=== PATIENT | female | born 1980 | race Caucasian/White ===

== ENCOUNTER 2023-07-02 10:27 | Emergency (ER) | payer OTHER, SELFPAY ==
[2023-07-02 10:31] VITALS: BP 126/91; PULSE 93; RESP 18; TEMP 36.5; O2SAT 99; BMI 28.1
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
--- OUTSIDE RECORDS SUMMARY | 2023-07-02 11:28 | XMS_ITS | Encounter Summary ---
Author Name Unknown Organization [place] Address [facility] [place] [address] Care Team Providers Care Retail Advertising Executive Name Role Phone Aric Dumont MD Primary Care Provider [phone] Anabell Wells Unavailable Unavailable Namrata Little PA-C Unavailable [phone] Aleshia Messina [facility] Unavailable Aleshia Messina [facility] Unavailable [phone] Aric Dumont MD Unavailable [phone] Encounter Details Date Type Department Care Team (Late st Contact Info) Description 08/17/2022 [facility] Medical Advice [facility] [address] [place] [phone] Cristina Guevara RN [facility] [address] [place] [address] [address] [place], [place] [id number] Social History Tobacco Use Types Packs/Day Years Used Date Smoking Tobacco: Every Day Cigarettes 0.3 19 Smokeless Tobacco: Never Alcohol Use Standard Drinks/Week Comments Yes 0 (1 standard drink = 0.6 oz pur e alcohol) 1x/month PHQ-2 Answer Date Recorded PHQ-2 Score 0 08/06/2020 Sex and Gender Information Value Date Recorded Sex Assigned at Not on file Gender Identity Female 11/27/2020 3:26 PM CDT Sexual Orientation Straight 11/27/2020 3: 26 PM CDT documented as of this encounter Plan of Treatment Not on file documented as of this encounter Visit Diagnoses Not on filedocumented in this encounter Additional Health Concerns Infection Onset Date Last Indicated Resolved Time ESBL 12/10/2010 08/12/2020 documented as of this encounter Care Teams Retail Advertising Executive Relationship Specialty [place] [address] [place] [address] PCP - General Family Practice 04/03/17 Anabell Wells Personal Advocate & Liaison (PAL) 08/07/20 Namrata Little PA-C [address] [facility] [address] [place] [address] Assigned Surgical Provider 09/15/20 Aleshia Messina [facility] [address] [place] [address] Pharmacist Pharmacist 03/17/21 Aleshia Messina [facility] [address] [place] [address] Assigned MTM Pharmacist 02/25/2209/18 [place] [address] [place] [address] Assigned PCP 07/25/22 documented as of this encounter
--- OUTSIDE RECORDS SUMMARY | 2023-07-02 11:28 | XMS_ITS | Encounter Summary ---
Author Name Unknown Organization [place] Address [address] [place] [address] Care Team Providers Care Propagation Worker Name Role Phone Aric Dumont MD Primary Care Provider [phone] Anabell Wells Unavailable Unavailable Namrata Little PA-C Unavailable [phone] Aleshia Messina [facility] Unavailable [phone] Aric Dumont MD Unavailable [phone] Encounter Details Date Type Department Care Team (Late st Contact Info) Description 11/12/2022 [facility] Medical Advice [address] [address] Cindy Lerma Social History Tobacco Use Types Packs/Day Years [...] documented as of this encounter Care Teams Propagation Worker Relationship Specialty [place] [address] [place] [address] PCP - General Family Practice 04/03/17 Anabell Wells Personal Advocate & Liaison (PAL) 08/07/20 Namrata Little PA-C [address] [facility] [address] [place] [address] Assigned Surgical Provider 09/15/20 Aleshia Messina [facility] [address] [place], [place] [address] Pharmacist Pharmacist 03/17/21 [place] [address] [place], [place] [id number] Assigned PCP 07/25/22 documented as of this encounter
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
--- OUTSIDE RECORDS SUMMARY | 2023-07-02 11:28 | XMS_ITS | Encounter Summary ---
Author Name Unknown Organization [place] Address [facility] [place] [address] Care Team Providers Care Lighting Engineering Technician Name Role Phone Aric Dumont MD Primary Care Provider [phone] Anabell Wells Unavailable Unavailable Namrata Little PA-C Unavailable [phone] Aleshia Messina [facility] Unavailable [phone] Aric Dumont MD Unavailable [phone] Encounter Details Date Type Department Care Team (Late st Contact Info) Description 10/12/2022 [facility] Medical Advice [facility] [address] [place] [address] Teetee Dubois RN Social History Tobacco Use Types Packs/Day Years [...] documented as of this encounter Care Teams Lighting Engineering Technician Relationship Specialty [place] [address] [place] [address] PCP - General Family Practice 04/03/17 Anabell Wells Personal Advocate & Liaison (PAL) 08/07/20 Namrata Little PA-C [address] [facility] [address] [place] [address] Assigned Surgical Provider 09/15/20 Aleshia Messina [facility] [address] [place] [address] Pharmacist Pharmacist 03/17/21 [place] [address] [place] [address] Assigned PCP 07/25/22 documented as of this encounter
--- OUTSIDE RECORDS SUMMARY | 2023-07-02 11:28 | XMS_ITS | Encounter Summary ---
Author Name Unknown Organization [place] Address [address] [place] [address] Care Team Providers Care Carburetor Repairer Name Role Phone Aric Dumont MD Primary Care Provider [phone] Anabell Wells Unavailable Unavailable Namrata Little PA-C Unavailable [phone] Aleshia Messina [facility] Unavailable [phone] Aric Dumont MD Unavailable [phone] Encounter Details Date Type Department Care Team (Latest Contact Info) Description 02/22/2023 Travel Social History Tobacco Use Types Packs/Day Years [...] Orientation Straight 11/27/2020 3: 26 PM CDT COVID-19 Exposure Response Date Recorded In the last 10 days, have yo u been in contact with someone who was confirmed or suspected to have Coronavirus/COVID-19? No / Unsure 02/22/2023 9:01 AM CDT documented as of this encounter Plan of Treatment Not on file documented as of this encounter Visit Diagnoses Not on filedocumented in this encounter Additional Health Concerns Infection Onset Date Last Indicated Resolved Time ESBL 12/10/2010 08/12/2020 documented as of this encounter Care Teams Carburetor Repairer Relationship Specialty [place] [address] [place] [address] PCP - General Family Practice 04/03/17 Anabell Wells Personal Advocate & Liaison (PAL) 08/07/20 Namrata Little PA-C [address] [facility] [address] [place] [address] Assigned Surgical Provider 09/15/20 Aleshia Messina, [facility] [address] [place] [address] Pharmacist Pharmacist 03/17/21 [place] [address] [place] [address] Assigned PCP 07/25/22 documented as of this encounter
--- OUTSIDE RECORDS SUMMARY | 2023-07-02 11:28 | XMS_ITS | Encounter Summary ---
Author Name Unknown Organization [place] Address [facility]0 [facility] [place] [address] Care Team Providers Care Contact Lens Inspector Name Role Phone Aric Dumont MD Primary Care Provider [phone] Anabell Wells Unavailable Unavailable Namrata Little PA-C Unavailable [phone] Aleshia Messina [facility] Unavailable [phone] Aric Dumont MD Unavailable [phone] Encounter Details Date Type Department Care Team (Latest Contact Info) Description 06/27/2023 Travel Social History Tobacco Use Types Packs/Day [...] documented as of this encounter Care Teams Contact Lens Inspector Relationship Specialty [place] [address] [place] [address] PCP - General Family Practice 04/03/17 Anabell Wells Personal Advocate & Liaison (PAL) 08/07/20 Namrata Little PA-C [address] [place] [address] Assigned Surgical Provider 09/15/20 Aleshia Messina [facility] [address] [place] [address] Pharmacist Pharmacist 03/17/21 [place] [address] [place] [address] Assigned PCP 07/25/22 documented as of this encounter
--- OUTSIDE RECORDS SUMMARY | 2023-07-02 11:28 | XMS_ITS | Encounter Summary ---
Author Name Unknown Organization [place] Address [facility] [place] [address] Care Team Providers Care Prospect Manager Name Role Phone Aric Dumont MD Primary Care Provider Anabell Wells Unavailable Unavailable Namrata Little PA-C Unavailable [phone] Aleshia Messina [facility] Unavailable Aric Dumont MD Unavailable [phone] Reason for Visit * Reason Comments UTI Entered automaticall y based on patient selection in [employer] [facility]. Encounter Details Date Type Department Care Team (Late st Contact Info) Description 02/22/2023 9:00 AM CDT E-Visit [facility] [address] [place] [phone] Orville Armas MD [address] [place] [address] UTI (Entered automatically based on patien... Social History Tobacco Use Types Packs/Day Years [...] AM CDT documented as of this encounter Patient Instructions * Patient Instructions* Orville Armas MD - 02/22/2023 9:00 AM CDT Dear Kim Harris After reviewing your responses, I've been able to diagnose you with a urinary tract infection, which is a common infection of the bladder with bacteria. This is not a sexually transmitted infection, though urinating immediately after intercourse can help prevent infections. Drinking lots of fluids is also helpful to clear your current infection and prevent the next one. I have sent a prescription for antibiotics to your pharmacy to treat this infection. It is important that you take all of your prescribed medication even if your symptoms are improvingafter a few doses. Taking all of your medicine helps prevent the symptoms from returning. If your symptoms worsen, you develop pain in your back or stomach, develop fevers, or are not improving in 5 days, please contact your primary care provider for an appointment or visit any of our convenient Walk-in or Urgent Care Centers to be seen, which can be found on our website here. Thanks again for choosing us as your health patient care technician, Orville Armas MD documented in this encounter Miscellaneous Notes * Telephone Encounter - Orville Armas MD - 02/22/2023 9:50 AM CDT Provider E-Visit time total (minutes): 3 documented in this encounter Plan of Treatment Not on file documented as of this encounter Visit Diagnoses Diagnosis Acute UTI (urinary tract infection)- Primary Urinary tract infection, site not specified documented in this encounter Additional Health Concerns Infection Onset Date Last Indicated Resolved Time ESBL 12/10/2010 08/12/2020 documented as of this encounter Care Teams Prospect Manager Relationship Specialty [place] [address] [place] [address] PCP - General Family Practice 04/03/17 Anabell Wells Personal Advocate & Liaison (PAL) 08/07/20 Namrata Little PA-C [address] [facility] [address] [place] [address] Assigned Surgical Provider 09/15/20 Aleshia Messina [facility] [address] [place] [address] Pharmacist Pharmacist 03/17/21 [place] [address] [place] [address] Assigned PCP 07/25/22 documented as of this encounter
--- OUTSIDE RECORDS SUMMARY | 2023-07-02 11:28 | XMS_ITS | Encounter Summary ---
Author Name Unknown Organization [place] Address [facility] [place] [address] Care Team Providers Care Land Appraiser Name Role Phone Aric Dumont MD Primary Care Provider [phone] Anabell Wells Unavailable Unavailable Namrata Little PA-C Unavailable [phone] Aleshia Messina [facility] Unavailable Aleshia Messina [facility] Unavailable [phone] Aric uDmont MD Unavailable [phone] Encounter Details Date Type Department Care Team (Late st Contact Info) Description 06/10/2022 [facility] [place] [facility] Weight Loss Clinic [address] [place] [phone] Cristina Guevara RN [facility] [address] [place] [address] [address] [place], [place] [id number] Social History Tobacco Use Types Packs/Day Years [...] documented as of this encounter Care Teams Land Appraiser Relationship Specialty [place] [address] [place] [address] PCP - General Family Practice 04/03/17 Anabell Wells Personal Advocate & Liaison (PAL) 08/07/20 Namrata Little PA-C [address] [facility] [address] [place] [address] Assigned Surgical Provider 09/15/20 Aleshia Messina [facility] 9 [place] [address] Pharmacist Pharmacist 03/17/21 Aleshia Messina [facility] [address] [place] [address] Assigned MTM Pharmacist 02/25/2209/18 [place] [address] [place] [address] Assigned PCP 07/25/22 documented as of this encounter
--- OUTSIDE RECORDS SUMMARY | 2023-07-02 11:28 | XMS_ITS | Encounter Summary ---
Author Name Unknown Organization [place] Address Formerly [facility], [facility] [place] [address] Care Team Providers Care Knock Up Assembler Name Role Phone Aric Dumont MD Primary Care Provider [phone] Anabell Wells Unavailable Unavailable Namrata Little PA-C Unavailable [phone] Aleshia Messina [facility] Unavailable [phone] Aleshia Messina [facility] Unavailable [phone] Aric Dumont MD Unavailable [phone] Reason for Visit * Reason Onset Date Comments Prior Auth - Medication 08/12/2022 liraglut kirk - Weight Management (SAXENDA) 18 MG/3ML pen--APPROVED Encounter Details Date Type Department Care Team (Late st Contact Info) Description 08/12/2022 Telephone [facility] [address] [place] [address] Namrata Little PA-C [address] [facility] [place] [address] Prior Auth - Medication (liraglutide - Weight Management (SAXENDA) 18 MG/3ML pen--APPROVED) Social History Tobacco Use Types Packs/Day Years [...] encounter Miscellaneous Notes * Telephone Encounter - Namrata Little PA-C - 08/17/2022 11:12 AM CDT Excellent. Please let pt know. * Telephone Encounter - Nate Diaz - 08/17/2022 10:05 AM CDT Prior authorization approved. $35/month co-pay. Thank you, ?? Nate Diaz [facility] [email or web address] * Telephone Encounter - Sarah Rodriguez - 08/17/2022 10:00 AM CDT Images from the original note were not included. Prior Authorization Approval Authorization Effective Date: 07/17/2022 Authorization Expiration Date: 08/17/2023 Medication: liraglutide - Weight Management (SAXENDA) 18 MG/3ML pen--APPROVED Approved Dose/Quantity: Reference #: Insurance Company: [employer] - Expected CoPay: CoPay Card Available: Foundation Assistance Needed: Which Pharmacy is filling the prescription (Not needed for infusion/clinic administered): [id number] - [place], [place] - [address] [facility] [address] AT [facility] 13 & AMA Pharmacy Notified: Yes Patient Notified: Yes Instructed pharmacy to notify patient when script is ready to pharmacy picking technician/ship. * Telephone Encounter - Sarah Rodriguez - 08/16/2022 9:45 AM CDT Images from the original note were not included. PA Initiation Medication: liraglutide - Weight Management (SAXENDA) 18 MG/3ML pen Insurance Company: [employer] - Pharmacy Filling the Rx: [id number] [place], [place] - [address] [place] [address] [address] AT [facility] 13 & AMA Filling Pharmacy Filling Pharmacy Start Date: 08/16/2022 * Telephone Encounter - Nate Diaz - 08/12/2022 2:25 PM CDT Images from the original note were not included. Received this communication. PA is needed. Please continue PA. ALE[facility] RX BIN: [id number] RX PCN: [id number] RX ID: [id number] RX GRP: [id number] Thank you, ?? Nate Diaz [facility] [email or web address] documented in this encounter Plan of Treatment Not on file documented as of this encounter Visit Diagnoses Not on filedocumented in this encounter Additional Health Concerns Infection Onset Date Last Indicated Resolved Time ESBL 12/10/2010 08/12/2020 documented as of this encounter Care Teams Knock Up Assembler Relationship Specialty [place] [address] [place] [address] PCP - General Family Practice 04/03/17 Anabell Wells Personal Advocate & Liaison (PAL) 08/07/20 Namrata Little PA-C [address] [place] [address] Assigned Surgical Provider 09/15/20 Aleshia Messina [facility] 909 [place], [place] [address] Pharmacist Pharmacist 03/17/21 Aleshia Messina [facility] 909 [place], [place] [address] Assigned MTM Pharmacist 02/25/2209/18 [place] [address] [place] [address] Assigned PCP 07/25/22 documented as of this encounter
--- OUTSIDE RECORDS SUMMARY | 2023-07-02 11:28 | XMS_ITS | Encounter Summary ---
Author Name Unknown Organization [place] Address [facility] [place] [address] Care Team Providers Care Pediatric Care Coordinator Name Role Phone Aric Dumont MD Primary Care Provider [phone] Anabell Wells Unavailable Unavailable Namrata Little PA-C Unavailable [phone] Aleshia Messina [facility] Unavailable [phone] Aric Dumont MD Unavailable [phone] Reason for Visit * Reason Onset Date Comments Refill Request 10/09/2022 Saxenda 6MG/ML P en Inj 3 ML Encounter Details Date Type Department Care Team (Late st Contact Info) Description 10/09/2022 Telephone [facility] Surgical Weight Loss [facility] [address] [place] [phone] Martin Barroso PA-C [address] [place] [address] Refill Request (Saxenda 6MG/ML Pen Inj 3 ML) Social History Tobacco Use Types Packs/Day Years [...] encounter Miscellaneous Notes * Telephone Encounter - Jensen Banks MA - 10/09/2022 2:55 PM CDT Medication & Dose: Saxenda 6MG/ML Pen Inj 3 ML Last Written Prescription Date: 11/03/2021 Last Fill Quantity: 15 mL # refills: 2 Last office visit with prescribing provider: 07/02/2022 Future Office Visit with [facility] Provider: N/A Pharmacy (specify location): [id number] AT [facility] 13 & AMA documented in this encounter Plan of Treatment Not on file documented as of this encounter Visit Diagnoses Not on filedocumented in this encounter Additional Health Concerns Infection Onset Date Last Indicated Resolved Time ESBL 12/10/2010 08/12/2020 documented as of this encounter Care Teams Pediatric Care Coordinator Relationship Specialty [place] [address] [place], [place] [id number] PCP - General Family Practice 04/03/17 Anabell Wells Personal Advocate & Liaison (PAL) 08/07/20 Namrata Little PA-C [address] [place] [address] Assigned Surgical Provider 09/15/20 Aleshia Messina [facility] 9 [place], [place] [address] Pharmacist Pharmacist 03/17/21 [place] [address] [place], [place] [id number] Assigned PCP 07/25/22 documented as of this encounter
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
--- OUTSIDE RECORDS SUMMARY | 2023-07-02 11:28 | XMS_ITS | Encounter Summary ---
Author Name Unknown Organization [place] Address [facility]0 [facility] [place] [address] Care Team Providers Care Line Closer Name Role Phone Aric Dumont MD Primary Care Provider [phone] Anabell Wells Unavailable Unavailable Namrata Little PA-C Unavailable [phone] Aleshia Messina [facility] Unavailable Aleshia Messina [facility] Unavailable [phone] Aric Dumont MD Unavailable [phone] Encounter Details Date Type Department Care Team (Late st Contact Info) Description 06/15/2022 [facility] Weight Loss [facility] [employer] [address] [facility] [address] [place] [phone] Namrata Little PA-C [address] [place], [place] [id number] [place] [address] Social History Tobacco Use Types Packs/Day Years [...] encounter Miscellaneous Notes * Telephone Encounter - Cristina Guevara, RN - 06/15/2022 4:11 PM STATE ASSESSED PROPERTIES DIRECTOR Called pt to inform Wegovy denied and recommended staying on Saxenda and possibly to start Naltrexone. msg sent in re: to above. Cristina Hurst, MS, RD, RN E ASSESSED PROPERTIES DIRECTOR documented in this encounter Plan of Treatment Not on file documented as of this encounter Visit Diagnoses Not on filedocumented in this encounter Additional Health Concerns Infection Onset Date Last Indicated Resolved Time ESBL 12/10/2010 08/12/2020 documented as of this encounter Care Teams Line Closer Relationship Specialty [place] [address] [place], [place] [id number] PCP - General Family Practice 04/03/17 Anabell Wells Personal Advocate & Liaison (PAL) 08/07/20 Namrata Little PA-C [address] [address] Assigned Surgical Provider 09/15/20 Aleshia Messina [facility] 9 [place] [address] Pharmacist Pharmacist 03/17/21 Aleshia Messina [facility] 909 [place] [address] Assigned MTM Pharmacist 02/25/2209/18 [place] [address] [place] [address] Assigned PCP 07/25/22 documented as of this encounter
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
--- OUTSIDE RECORDS SUMMARY | 2023-07-02 11:28 | XMS_ITS | Clinical Summary ---
Author Name Unknown Organization [place] Address [facility] [place] [address] Care Team Providers Care Putty And Patch Worker Name Role Phone Aric Dumont MD Primary Care Provider [phone] Anabell Wells Unavailable Unavailable Namrata Little PA-C Unavailable [phone] Aleshia Messina [facility] Unavailable Aric Dumont MD Unavailable [phone] Allergies Active Allergy Reactions Criticality Noted Date [...] Active fluticasone (FLONASE) 50 MCG/ACT sprayIndications:C oryza [place] 1-2 sprays into both nostrils daily 1 [...] 50 MCG/ACT nasal sprayIndications:A cute non-recurrent pansinusitis [place] 1 spray into both nostrils daily 18.2 [...] 03/03/2021 Migraine 03/16/2007 03/03/2021 Overview: Migraine NOS Encounters Date Type Department Care Team Description 06/28/2023 MyC Medical Advice [address] [phone] Aric Dumont MD Patient Request 06/27/2023 10:19 AM RESIDENTIAL GAS HEAT TECHNICIAN - 06/27/2023 11:06 AM RESIDENTIAL GAS HEAT TECHNICIAN Emergency [facility] Emergency Dept [address] [place] [address] Linwood Bañuelos MD Discharge Disposition: Left Without Being Seen 06/27/2023 Travel from Last 3 Months Immunizations Name Administration Dates Next Due Flu, Unspecified 03/06/2009,04/25/2002, 9 HPV Quadrivalent 06/14/2007 HepB, Unspecified 09/02/2001,02/14/2001,01/19/20 01 MMR 08/21/2014,01/18/2001,07/08/1994 Mantoux Tuberculin Skin Test 08/29/2014,08/22/19 15,11/03/2006 Pneumococcal 23 valent 09/26/2009 TDAP Vaccine (Adacel) 07/14/2012 Td (Adult), Adsorbed 01/18/2001 Varicella Pt Report Hx of Va ricella/Chicken Pox 08/21/2014 Family History Medical History Relation Comments Skin Cancer No family hx of Relation Status Comments Father Alive Mother Alive Social History Tobacco Use Types Packs/Day Years [...] Comments Blood Pressure 140/94 06/27/2023 10:24 AM RESIDENTIAL GAS HEAT TECHNICIAN Pulse 104 06/27/2023 10:24 AM RESIDENTIAL GAS HEAT TECHNICIAN Temperature 36.7 ??C (98.1 ??F) 06/27/2023 10:[address] Respiratory Rate 18 06/27/2023 10:24 AM RESIDENTIAL GAS HEAT TECHNICIAN Oxygen Saturation 100% 06/27/2023 10:24 AM RESIDENTIAL GAS HEAT TECHNICIAN Inhaled Oxygen Concentration - - Weight 88.5 kg (195 lb) 06/09/2022 2:30 PM RESIDENTIAL GAS HEAT TECHNICIAN p t reported Height 175.3 cm (5' 9) 06/09/2022 2:30 PM RESIDENTIAL GAS HEAT TECHNICIAN p t reported Body Mass Index 28.8 06/09/2022 2:30 PM RESIDENTIAL GAS HEAT TECHNICIAN Plan of Treatment Health Maintenance Due Date Last Done Comments ADVANCE CARE PLANNING 1981 DEPRESSION ACTION PLAN 1981 MAMMO SCREENING 1981 PHQ-9 1981 COVID-19 Vaccine (#1) 05/25/1982 HPV IMMUNIZATION (2 - 3-dose series) 07/12/2007 06/14/2007 YEARLY PREVENTIVE VISIT 10/19/2018 10/19/2017 A1C 08/06/2021 08/06/2020 ANNUAL REVIEW OF HM ORDERS 08/06/2021 08/06/2020, DTAP/TDAP/TD IMMUNIZATION (3 - Td or Tdap) 07/14/2022 07/14/2012, 01/18/2001 LIPID 10/19/2022 10/19/2017, 12/10/2015 INFLUENZA VACCINE (#1) 2023 9, 04/25/2002, 03/27/1999 GLUCOSE 12/21/2024 12/21/2021, 03/01/2021, 07/28/2018, Additional history exists HEPATITIS B IMMUNIZATION Completed 002, 02/14/2001, 01/18/2001 Pneumococcal Vaccine: Pediatrics (0 to 5 Years) and At-Risk Patients (6 to 64 Years) Discontinued 09/26/2009 HIV SCREENING Completed 10/19/2017 HEPATITIS C SCREENING Completed 08/06/2020 IPV IMMUNIZATION Aged Out No longer e ligible based on patient's age to complete this topic MENINGITIS IMMUNIZATION Aged Out No l onger eligible based on patient's age to complete this topic PAP Discontinued RSV MONOCLONAL ANTIBODY Aged Out No l onger eligible based on patient's age to complete this topic Medical Devices Explanted Type Area Breaker Tender Device Identifier Shelf Expiration Date Model / Serial / Lot Catheter-2020 Implanted:Qty: 1 on 11/25/2020 by Cedrick Lee MD Explanted:Qty: 1 on 11/25/2020 by Cedrick Lee MD Catheter Bilateral : Leg [employer] [id number] 05/30/2022 / / [id number] Additional Health Concerns Infection Onset Date Last Indicated ESBL 12/10/2010 08/12/2020 Care Teams Putty And Patch Worker Relationship Specialty [place] [address] [place], [place] [id number] PCP - General Family Practice 04/03/17 Anabell Wells Personal Advocate & Liaison (PAL) 08/07/20 Namrata Little PA-C [address] [facility] [address] [place] [address] Assigned Surgical Provider 09/15/20 Aleshia Messina [facility] 909 [place] [address] Pharmacist Pharmacist 03/17/21 [place] [address] [place], [place] [address] Assigned PCP 07/25/22
--- OUTSIDE RECORDS SUMMARY | 2023-07-02 11:28 | XMS_ITS | Encounter Summary ---
Author Name Unknown Organization [place] Address [address] [facility] [address] Care Team Providers Care Nitroglycerin Separator Operator Name Role Phone Aric Dumont MD Primary Care Provider [phone] Anabell Wells Unavailable Unavailable Namrata Little PA-C Unavailable [phone] Aleshia Messina [facility] Unavailable Aric Dumont MD Unavailable [phone] Reason for Visit * Reason Comments Cough Entered automaticall y based on patient selection in MyChart. Encounter Details Date Type Department Care Team (Late st Contact Info) Description 03/16/2023 10:35 AM CDT E-Visit [facility] [address] [address] Gurmeet Wilson MD 0485 [facility] [address] [place], [place] [address] Cough (Entered automatically based on rea... Social History Tobacco Use Types Packs/Day Years [...] AM CDT documented as of this encounter Miscellaneous Notes * Telephone Encounter - Gurmeet Wilson MD - 03/16/2023 10:37 AM CDT Provider E-Visit time total (minutes): 2 documented in this encounter Plan of Treatment Scheduled Orders Name Type Priority Associated Diagnoses Orde r Schedule Influenza A & B Antigen (Clinic collect) Microbiology Routine Suspected COVID-19 virus infection Expected: 03/16/2023 (Approximate), Expires: 04/16/2023 Symptomatic COVID-19 Virus (Coronavirus) by PCR Nose Lab Routine Suspected COVID-19 virus infection Expected: 03/16/2023 (Approximate), Expires: 04/16/2023 Streptococcus A Rapid Screen w/Reflex to PCR Microbiology Routine Suspected COVID-19 virus infection Expected: 03/16/2023 (Approximate), Expires: 04/16/2023 documented as of this encounter Visit Diagnoses Diagnosis Suspected COVID-19 virus infection- Primary documented in this encounter Additional Health Concerns Infection Onset Date Last Indicated Resolved Time ESBL 12/10/2010 08/12/2020 documented as of this encounter Care Teams Nitroglycerin Separator Operator Relationship Specialty [place] [address] [place] [address] [place] [address] PCP - General Family Practice 04/03/17 Anabell Wells Personal Advocate & Liaison (PAL) 08/07/20 Namrata Little PA-C [address] [facility] [address] [place] [address] Assigned Surgical Provider 09/15/20 Aleshia Messina, [facility] 909 [place] [address] Pharmacist Pharmacist 03/17/21 [place] [address] [place] [address] Assigned PCP 07/25/22 documented as of this encounter
--- OUTSIDE RECORDS SUMMARY | 2023-07-02 11:29 | XMS_ITS | Encounter Summary ---
Author Name Unknown Organization [place] Address [facility] [place] [address] Care Team Providers Care Computer Networking Instructor Name Role Phone Aric Dumont MD Primary Care Provider Aric Dumont MD Unavailable [phone] Anabell Wells Unavailable Unavailable Cedrick Lee MD Unavailable [phone] Namrata Little PA-C Unavailable [phone] Aleshia Messina [facility] Unavailable [phone] Aleshia Messina [facility] Unavailable Aleshia Messina [facility] Unavailable Airc Dumont MD Unavailable [phone] Encounter Details Date Type Department Care Team (Late st Contact Info) Description 02/10/2021 [facility] Medical Advice [facility] [place] [id number] [facility] [address] [place] [phone] Namrata Little PA-C [address] [facility] [place], [place] [address] Social History Tobacco Use Types Packs/Day Years [...] Last Indicated Resolved Time ESBL 12/10/2010 08/12/2020 Rule Out COVID-19 05/04/2021 05/04/2021 05/05/2021 11:08 AM MACHINE TANK OPERATOR Rule Out COVID-19 12/21/2021 12/21/2021 12/21/2021 11:03 AM CDT COVID-19 12/21/2021 12/21/2021 01/11/2022 11:4 1 PM CDT documented as of this encounter Care Teams Computer Networking Instructor Relationship Specialty [place] [address] [place] [address] PCP - General Family Practice 04/03/17 [place] [address] [place] [address] Assigned PCP 11/19/19 05/15/22 Anabell Wells Personal Advocate & Liaison (PAL) 08/07/20 Cedrick Lee MD [address] [place] [address] Assigned Heart and Vascular Provider 08/18/20 05/29/22 Namrata Little PA-C [address] [place] [address] Assigned Surgical Provider 09/15/20 Aleshia Messina, [facility] 909 [place] [address] Pharmacist Pharmacist 03/17/21 Aleshia Messina, [facility] 9 [place] [address] Assigned MTM Pharmacist 10/25/2102/13 Aleshia Messina [facility] 9 [place] [address] Assigned MTM Pharmacist 02/25/2209/18 [place] [address] [place] [address] Assigned PCP 07/25/22 documented as of this encounter
--- OUTSIDE RECORDS SUMMARY | 2023-07-02 11:29 | XMS_ITS | Encounter Summary ---
Author Name Unknown Organization [place] Address [facility] [place] [address] Care Team Providers Care Sales Representative Groceries Name Role Phone Aric Dumont MD Primary Care Provider Aric Dumont MD Unavailable [phone] Anabell Wells Unavailable Unavailable Cedrick Lee MD Unavailable [phone] Namrata Little PA-C Unavailable [phone] Aleshia Messina [facility] Unavailable [phone] Aleshia Messina [facility] Unavailable Aleshia Messina [facility] Unavailable Aric Dumont MD Unavailable [phone] Encounter Details Date Type Department Care Team (Late st Contact Info) Description 07/22/2021 [facility] [address] [place] [address] Cristina Guevara RN [facility] [address] [place] [address] [address] [place] [address] Social History Tobacco Use Types Packs/Day Years [...] Time ESBL 12/10/2010 08/12/2020 Rule Out COVID-19 12/21/2021 12/21/2021 12/21/2021 11:03 AM CDT COVID-19 12/21/2021 12/21/2021 01/11/2022 11:4 1 PM CDT documented as of this encounter Care Teams Sales Representative Groceries Relationship Specialty [place] [address] [place] [address] PCP - General Family Practice 04/03/17 [place] [address] [place] [address] Assigned PCP 11/19/19 05/15/22 Anabell Wells Personal Advocate & Liaison (PAL) 08/07/20 Cedrick Lee MD [address] [place] [address] Assigned Heart and Vascular Provider 08/18/20 05/29/22 Namrata Little PA-C [address] [place] [address] Assigned Surgical Provider 09/15/20 Aleshia Messina, [facility] [address] [place], [place] [address] Pharmacist Pharmacist 03/17/21 Aleshia Messina [facility] [address] [place] [address] Assigned MTM Pharmacist 10/25/2102/13 Aleshia Messina [facility] [address] [place] [address] Assigned MTM Pharmacist 02/25/2209/18 [place] [address] [place] [address] Assigned PCP 07/25/22 documented as of this encounter
--- OUTSIDE RECORDS SUMMARY | 2023-07-02 11:29 | XMS_ITS | Encounter Summary ---
Author Name Unknown Organization [place] Address [facility] [place] [address] Care Team Providers Care Spudder Name Role Phone Aric Dumont MD Primary Care Provider [phone] Aric Dumont MD Unavailable [phone] Anabell Wells Unavailable Unavailable Cedrick Lee MD Unavailable [phone] Namrata Little PA-C Unavailable [phone] Aleshia Messina [facility] Unavailable [phone] Aleshia Messina [facility] Unavailable Aleshia Messina [facility] Unavailable [phone] Aric Dumont MD Unavailable [phone] Reason for Visit * Reason Comments Medication Refill Encounter Details Date Type Department Care Team (Late st Contact Info) Description 07/22/2021 [facility] Surgical Weight [facility] [place] [address] [facility] [address] [place] [phone] Namrata Little PA-C [address] [facility] [address] [place] [id number] Medication Refill Social History Tobacco Use Types Packs/Day Years [...] encounter Miscellaneous Notes * Telephone Encounter - Martin Barroso PA-C - 07/22/2021 3:34 PM SACK MAKER Needs appointment MAKER documented in this encounter Plan of Treatment Not on file documented as of this encounter Visit Diagnoses Diagnosis Class 1 obesity due to excess calories without serious comorbidity with body mass index (BMI) of 33.0 to 33.9 in adult Prediabetes Other abnormal glucose documented in this encounter Additional Health Concerns Infection Onset Date Last Indicated Resolved Time ESBL 12/10/2010 08/12/2020 Rule Out COVID-19 12/21/2021 12/21/2021 12/21/2021 11:03 AM CDT COVID-19 12/21/2021 12/21/2021 01/11/2022 11:4 1 PM CDT documented as of this encounter Care Teams Spudder Relationship Specialty [place] [address] [place] [address] PCP - General Family Practice 04/03/17 [place] [address] [place] [address] Assigned PCP 11/19/19 05/15/22 Anabell Wells Personal Advocate & Liaison (PAL) 08/07/20 Cedrick Lee MD [address] [place] [address] Assigned Heart and Vascular Provider 08/18/20 05/29/22 Namrata Little PA-C [address] [place] [address] Assigned Surgical Provider 09/15/20 Aleshia Messina [facility] 9 [place] [address] Pharmacist Pharmacist 03/17/21 [facility] 9 [place] [address] Assigned MTM Pharmacist 10/25/2102/13 [facility] 9 [place] [address] Assigned MTM Pharmacist 02/25/2209/18 [place] [address] [place] [address] Assigned PCP 07/25/22 documented as of this encounter
--- OUTSIDE RECORDS SUMMARY | 2023-07-02 11:29 | XMS_ITS | Encounter Summary ---
Author Name Unknown Organization [place] Address [address] [place] [address] Care Team Providers Care Molasses Coloring Operator Name Role Phone Aric Dumont MD Primary Care Provider [phone] Aric Dumont MD Unavailable [phone] Aanbell Wells Unavailable Unavailable Cedrick Lee MD Unavailable [phone] Namrata Little PA-C Unavailable [phone] Aleshia Messina [facility] Unavailable Aleshia Messina [facility] Unavailable Aleshia Messina [facility] Unavailable [phone] Aric Dumont MD Unavailable [phone] Encounter Details Date Type Department Care Team (Late st Contact Info) Description 03/18/2021 [facility] [address] [place] [address] Aleshia Messina, [facility] [address] [place] [address] Social History Tobacco Use Types Packs/Day Years [...] Out COVID-19 05/04/2021 05/04/2021 05/05/2021 11:08 AM SOLID GLASS ROD DOWEL MACHINE OPERATOR Rule Out COVID-19 12/21/2021 12/21/2021 12/21/2021 11:03 AM CDT COVID-19 12/21/2021 12/21/2021 01/11/2022 11:4 1 PM CDT documented as of this encounter Care Teams Molasses Coloring Operator Relationship Specialty [place] [address] [place] [address] PCP - General Family Practice 04/03/17 [place] [address] [place] [address] Assigned PCP 11/19/19 05/15/22 Anabell Wells Personal Advocate & Liaison (PAL) 08/07/20 Cedrick Lee MD [address] [place] [address] Assigned Heart and Vascular Provider 08/18/20 05/29/22 Namrata Little PA-C [address] [place] [address] Assigned Surgical Provider 09/15/20 Aleshia Messina [facility] 9 [place] [address] Pharmacist Pharmacist 03/17/21 Aleshia Messina, [facility] [address] [place] [address] Assigned MTM Pharmacist 10/25/2102/13 Aleshia Messina [facility] [address] [place] [address] Assigned MTM Pharmacist 02/25/2209/18 [place] [address] [place] [address] Assigned PCP 07/25/22 documented as of this encounter
--- OUTSIDE RECORDS SUMMARY | 2023-07-02 11:29 | XMS_ITS | Encounter Summary ---
Author Name Unknown Organization [place] Address [facility] [place] [address] Care Team Providers Care Gas Turbine Mechanic Name Role Phone Aric Dumont MD Primary Care Provider [phone] Aric Dumont MD Unavailable [phone] Anabell Wells Unavailable Unavailable Cedrick Lee MD Unavailable [phone] Namrata Little PA-C Unavailable [phone] Aleshia Messina [facility] Unavailable [phone] Aleshia Messina [facility] Unavailable [phone] Aleshia Messina [facility] Unavailable [phone] Aric Dumont MD Unavailable [phone] Reason for Visit * Reason Comments Medication Refill Encounter Details Date Type Department Care Team (Late st Contact Info) Description [facility] [place] [address] [facility] [address] [place] [phone] Namrata Little PA-C 6[address] [facility] [address] [place] [address] Medication Refill Social History Tobacco Use Types [...] suspected to have Coronavirus/COVID-19? No / Unsure 12/21/2021 9:40 AM CDT documented as of this encounter Miscellaneous Notes * Telephone Encounter - Cristina Guevara, ROSEMARY - 01/19/2022 8:43 AM CDT Medication discontinued and changed to Saxenda 03/17/21. Cristina Hurst MS, RD, RN documented in this encounter Plan of Treatment Not on file documented as of this encounter Visit Diagnoses Diagnosis Prediabetes Other abnormal glucose Class 2 severe obesity due to excess calories with serious comorbidity and body mass index (BMI) of 39.0 to 39.9 in adult (H) documented in this encounter Additional Health Concerns Infection Onset Date Last Indicated Resolved Time ESBL 12/10/2010 08/12/2020 documented as of this encounter Care Teams Gas Turbine Mechanic Relationship Specialty [place] [address] [place] [address] PCP - General Family Practice 04/03/17 [place] [address] [place] [address] Assigned PCP 11/19/19 05/15/22 Anabell Wells Personal Advocate & Liaison (PAL) 08/07/20 Cedrick Lee MD [address] [address] Assigned Heart and Vascular Provider 08/18/20 05/29/22 Namrata Little PA-C [address] [place] [address] Assigned Surgical Provider 09/15/20 Aleshia Messina [facility] 9 [place] [address] Pharmacist Pharmacist 03/17/21 Aleshia Messina [facility] [address] [place] [address] Assigned MTM Pharmacist 10/25/2102/13 Aleshia Messina [facility] [address] [place] [address] Assigned MTM Pharmacist 02/25/2209/18 [place] [address] [place] [address] Assigned PCP 07/25/22 documented as of this encounter
--- OUTSIDE RECORDS SUMMARY | 2023-07-02 11:29 | XMS_ITS | Encounter Summary ---
Author Name Unknown Organization [place] Address [facility] [place] [address] Care Team Providers Care Pilot Plant Operator Helper Name Role Phone Aric Dumont MD Primary Care Provider Aric Dumont MD Unavailable [phone] Anabell Wells Unavailable Unavailable Cedrick Lee MD Unavailable [phone] Namrata Little PA-C Unavailable [phone] Aleshia Messina [facility] Unavailable Aleshia Messina [facility] Unavailable Aleshia Messina [facility] Unavailable Aric Dumont MD Unavailable [phone] Reason for Visit * Reason Comments Medication Refill Encounter Details Date Type Department Care Team (Late st Contact Info) Description [facility] [place] [address] [facility] [address] [place] [phone] Namrata Little PA-C 6[address] [facility] [address] [place] [address] Medication Refill Social History Tobacco Use Types [...] suspected to have Coronavirus/COVID-19? No / Unsure 09/22/2021 3:32 PM CDT documented as of this encounter Miscellaneous Notes * Telephone Encounter - Cristina Guevara, RN - 09/22/2021 3:13 PM CDT Duplicate. Same refill request sent earlier today and waiting on patient's reply. Cristina Hurst, MS, RD, RN documented in this encounter Plan of Treatment Not on file documented as of this encounter Visit Diagnoses Diagnosis Class 2 severe obesity due to excess [...] documented as of this encounter Care Teams Pilot Plant Operator Helper Relationship Specialty [place] [address] [place] [address] PCP - General Family Practice 04/03/17 [place] [address] [place] [address] Assigned PCP 11/19/19 05/15/22 Anabell Wells Personal Advocate & Liaison (PAL) 08/07/20 Cedrick Lee MD [address] [place] [address] Assigned Heart and Vascular Provider 08/18/20 05/29/22 Namrata Little PA-C [address] [place] [address] Assigned Surgical Provider 09/15/20 Aleshia Messina [facility] 9 [place] [address] Pharmacist Pharmacist 03/17/21 [facility] [address] [place] [address] Assigned MTM Pharmacist 10/25/2102/13 [facility] 9 [place] [address] Assigned MTM Pharmacist 02/25/2209/18 [place] [address] [place] [address] Assigned PCP 07/25/22 documented as of this encounter
--- OUTSIDE RECORDS SUMMARY | 2023-07-02 11:29 | XMS_ITS | Encounter Summary ---
Author Name Unknown Organization [place] Address [address] [place] [address] Care Team Providers Care Engineer Design And Construction Name Role Phone Aric Dumont MD Primary Care Provider Aric Dumont MD Unavailable [phone] Anabell Wells Unavailable Unavailable Cedrick Lee MD Unavailable [phone] Namrata Little PA-C Unavailable [phone] Aleshia Messina [facility] Unavailable [phone] Aleshia Messina [facility] Unavailable Aleshia Messina [facility] Unavailable [phone] Aric Dumont MD Unavailable [phone] Encounter Details Date Type Department Care Team (Late st Contact Info) Description 03/27/2021 [facility] [address] [place] [address] Aleshia Messina, [facility] [address] [place] [address] Social History Tobacco Use Types [...] Out COVID-19 05/04/2021 05/04/2021 05/05/2021 11:08 AM CATTLE PRODUCERS Rule Out COVID-19 12/21/2021 12/21/2021 12/21/2021 11:03 AM CDT COVID-19 12/21/2021 12/21/2021 01/11/2022 11:4 1 PM CDT documented as of this encounter Care Teams Engineer Design And Construction Relationship Specialty [place] [address] [place] [address] PCP - General Family Practice 04/03/17 [place] [address] [place] [address] Assigned PCP 11/19/19 05/15/22 Anabell Wells Personal Advocate & Liaison (PAL) 08/07/20 Cedrick Lee MD [address] [place] [address] Assigned Heart and Vascular Provider 08/18/20 05/29/22 Namrata Little PA-C [address] [place] 264475 Assigned Surgical Provider 09/15/20 Aleshia Messina [facility] [address] [place] [address] Pharmacist Pharmacist 03/17/21 Aleshia Messina, [facility] [address] [place] [address] Assigned MTM Pharmacist 10/25/2102/13 Aleshia Messina [facility] [address] [place] [address] Assigned MTM Pharmacist 02/25/2209/18 [place] [address] [place] [address] Assigned PCP 07/25/22 documented as of this encounter
--- OUTSIDE RECORDS SUMMARY | 2023-07-02 11:29 | XMS_ITS | Encounter Summary ---
Author Name Unknown Organization [place] Address [address] [place] [address] Care Team Providers Care Mailroom Messenger Name Role Phone Aric Dumont MD Primary Care Provider Aric Dumont MD Unavailable [phone] Anabell Wells Unavailable Unavailable Cedrick Lee MD Unavailable [phone] Namrata Little PA-C Unavailable [phone] Aleshia Messina [facility] Unavailable [phone] Aleshia Messina [facility] Unavailable Aleshia Messina [facility] Unavailable Aric Dumont MD Unavailable [phone] Encounter Details Date Type Department Care Team (Late st Contact Info) Description 11/19/2020 [facility] [address] [address] Wade Clark, ROSEMARY Social History Tobacco Use Types Packs/Day Years [...] Out COVID-19 05/04/2021 05/04/2021 05/05/2021 11:08 AM COMPOUND MACHINE OPERATOR Rule Out COVID-19 12/21/2021 12/21/2021 12/21/2021 11:03 AM CDT COVID-19 12/21/2021 12/21/2021 01/11/2022 11:4 1 PM CDT documented as of this encounter Care Teams Mailroom Messenger Relationship Specialty [place] [address] [place] [address] PCP - General Family Practice 04/03/17 [place] [address] [place] [address] Assigned PCP 11/19/19 05/15/22 Anabell Wells Personal Advocate & Liaison (PAL) 08/07/20 Cedrick Lee MD [address] [place] [address] Assigned Heart and Vascular Provider 08/18/20 05/29/22 Namrata Little PA-C [address] [place] [id number] Assigned Surgical Provider 09/15/20 Aleshia Messina [facility] [address] [place] [address] Pharmacist Pharmacist 03/17/21 Aleshia Messina [facility] [address] [place] [address] Assigned MTM Pharmacist 10/25/2102/13 Aleshia Messina [facility] [address] [place] [address] Assigned MTM Pharmacist 02/25/2209/18 [place] [address] [place] [address] Assigned PCP 07/25/22 documented as of this encounter
--- OUTSIDE RECORDS SUMMARY | 2023-07-02 11:29 | XMS_ITS | Encounter Summary ---
Author Name Unknown Organization [place] Address [facility] [place] [address] Care Team Providers Care Ice Cream Freezer Name Role Phone Aric Dumont MD Primary Care Provider Anabell Wells Unavailable Unavailable Cedrick Lee MD Unavailable [phone] Namrata Little PA-C Unavailable [phone] Aleshia Messina [facility] Unavailable [phone] Aleshia Messina [facility] Unavailable [phone] Aric Dumont MD Unavailable [phone] Reason for Visit * Reason Comments Medication Refill Encounter Details Date Type Department Care Team (Late st Contact Info) Description 05/18/2022 [facility] [place] [address] [facility] [address] [place] [phone] Namrata Little PA-C [address] [facility] [address] [place] [id number] Medication Refill Social History Tobacco Use Types [...] Visit Diagnoses Diagnosis Prediabetes Other abnormal glucose documented in this encounter Additional Health Concerns Infection Onset Date Last Indicated Resolved Time ESBL 12/10/2010 08/12/2020 documented as of this encounter Care Teams Ice Cream Freezer Relationship Specialty [place] [address] [place] [address] PCP - General Family Practice 04/03/17 Anabell Wells Personal Advocate & Liaison (PAL) 08/07/20 Cedrick Lee MD [address] [place] [address] Assigned Heart and Vascular Provider 08/18/20 05/29/22 Namrata Little PA-C [address] [place] [address] Assigned Surgical Provider 09/15/20 Aleshia Messina [facility] [address] [place] [address] Pharmacist Pharmacist 03/17/21 Aleshia Messina [facility] [address] [place] [address] Assigned MTM Pharmacist 02/25/2209/18 [place] [address] [place] [address] Assigned PCP 07/25/22 documented as of this encounter
--- OUTSIDE RECORDS SUMMARY | 2023-07-02 11:29 | XMS_ITS | Encounter Summary ---
Author Name Unknown Organization [place] Address [address] [place] [address] Care Team Providers Care Robotic Toy Inventor Name Role Phone Aric Dumont MD Primary Care Provider Aric Dumont MD Unavailable [phone] Anabell Wells Unavailable Unavailable Cedrick Lee MD Unavailable [phone] Namrata Little PA-C Unavailable [phone] Alsehia Messina [facility] Unavailable [phone] Aleshia Messina [facility] Unavailable Aleshia Messina [facility] Unavailable Aric Dumont MD Unavailable [phone] Encounter Details Date Type Department Care Team (Late st Contact Info) Description 03/21/2021 [facility] [address] [place] [address] Aleshia Messina, [facility] [address] [place] [address] Social History Tobacco Use Types [...] Out COVID-19 05/04/2021 05/04/2021 05/05/2021 11:08 AM RECORDIST Rule Out COVID-19 12/21/2021 12/21/2021 12/21/2021 11:03 AM CDT COVID-19 12/21/2021 12/21/2021 01/11/2022 11:4 1 PM CDT documented as of this encounter Care Teams Robotic Toy Inventor Relationship Specialty [place] [address] [place] [address] PCP - General Family Practice 04/03/17 [place] [address] [place] [address] Assigned PCP 11/19/19 05/15/22 Anabell Wells Personal Advocate & Liaison (PAL) 08/07/20 Cedrick Lee MD [address] [place] [address] Assigned Heart and Vascular Provider 08/18/20 05/29/22 Namrata Little PA-C [address] [place] 717205 Assigned Surgical Provider 09/15/20 Aleshia Messina [facility] 9 [place] [address] Pharmacist Pharmacist 03/17/21 Aleshia Messina, [facility] [address] [place] [address] Assigned MTM Pharmacist 10/25/2102/13 Aleshia Messina [facility] [address] [place] [address] Assigned MTM Pharmacist 02/25/2209/18 [place] [address] [place] [address] Assigned PCP 07/25/22 documented as of this encounter
--- OUTSIDE RECORDS SUMMARY | 2023-07-02 11:29 | XMS_ITS | Encounter Summary ---
Author Name Unknown Organization [place] Address [facility] [place] [address] Care Team Providers Care Sales Enablement Analyst Name Role Phone Aric Dumont MD Primary Care Provider Aric Dumont MD Unavailable [phone] Anabell Wells Unavailable Unavailable Cedrick Lee MD Unavailable [phone] Namrata Little PA-C Unavailable [phone] Aleshia Messina [facility] Unavailable [phone] Aleshia Messina [facility] Unavailable [phone] Aleshia Messina [facility] Unavailable [phone] Aric Dumont MD Unavailable [phone] Reason for Visit * Reason Comments Medication Refill Encounter Details Date Type Department Care Team (Late st Contact Info) Description 10/20/2021 [facility] [place] [address] [facility] [address] [place] [phone] Namrata Little PA-C [address] [facility] [address] [place] [address] Medication Refill Social History Tobacco Use Types [...] as of this encounter Visit Diagnoses Diagnosis Drug-induced constipation Other constipation documented in this encounter Additional Health Concerns Infection Onset Date Last Indicated Resolved Time ESBL 12/10/2010 08/12/2020 Rule Out COVID-19 12/21/2021 12/21/2021 12/21/2021 11:03 AM CDT COVID-19 12/21/2021 12/21/2021 01/11/2022 11:4 1 PM CDT documented as of this encounter Care Teams Sales Enablement Analyst Relationship Specialty [place] [address] [place] [address] PCP - General Family Practice 04/03/17 [place] [address] [place] [address] Assigned PCP 11/19/19 05/15/22 Anabell Wells Personal Advocate & Liaison (PAL) 08/07/20 Cedrick Lee MD [address] [place] 552215 Assigned Heart and Vascular Provider 08/18/20 05/29/22 Namrata Little PA-C [address] [place] [address] Assigned Surgical Provider 09/15/20 Aleshia Messina [facility] [address] [place] [address] Pharmacist Pharmacist 03/17/21 Aleshia Messina [facility] 9 [place] [address] Assigned MTM Pharmacist 10/25/2102/13 Aleshia Messina [facility] 9 [place] [address] Assigned MTM Pharmacist 02/25/2209/18 [place] [address] [place] [address] Assigned PCP 07/25/22 documented as of this encounter
--- OUTSIDE RECORDS SUMMARY | 2023-07-02 11:29 | XMS_ITS | Encounter Summary ---
Author Name Unknown Organization [place] Address [facility] [place] [address] Care Team Providers Care Dental Technology Advisor Name Role Phone Aric Dumont MD Primary Care Provider Aric Dumont MD Unavailable [phone] Anabell Wells Unavailable Unavailable Cedrick Lee MD Unavailable [phone] Namrata Little PA-C Unavailable [phone] Aleshia Messina [facility] Unavailable Aleshia Messina [facility] Unavailable Aleshia Messina [facility] Unavailable [phone] Aric Dumont MD Unavailable [phone] Encounter Details Date Type Department Care Team (Late st Contact Info) Description 09/24/2021 [facility] Adv[facility] [address] [place] [address] Cristina Guevara RN [facility] [address] [place] [address] [address] [place] [address] Social History Tobacco Use Types [...] documented as of this encounter Care Teams Dental Technology Advisor Relationship Specialty [place] [address] [place] [address] PCP - General Family Practice 04/03/17 [place] [address] [place] [address] Assigned PCP 11/19/19 05/15/22 Anabell Wells Personal Advocate & Liaison (PAL) 08/07/20 Cedrick Lee MD [address] [place] [address] Assigned Heart and Vascular Provider 08/18/20 05/29/22 Namrata Little PA-C [address] [place] [address] Assigned Surgical Provider 09/15/20 Aleshia Messina, [facility] [address] [place] [address] Pharmacist Pharmacist 03/17/21 Aleshia Messina, [facility] 9 [place], [place] [address]60[address] Assigned MTM Pharmacist 10/25/2102/13 Aleshia Messina, [facility] [address] [place] [address] Assigned MTM Pharmacist 02/25/2209/18 [place] [address] [place] [address] Assigned PCP 07/25/22 documented as of this encounter
--- OUTSIDE RECORDS SUMMARY | 2023-07-02 11:29 | XMS_ITS | Encounter Summary ---
Author Name Unknown Organization [place] Address [address] [place] [address] Care Team Providers Care Baby Formula Mixer Name Role Phone Aric uDmont MD Primary Care Provider Aric Dumont MD Unavailable [phone] Anabell Wells Unavailable Unavailable Cedrick Lee MD Unavailable [phone] Namrata Little PA-C Unavailable [phone] Aleshia Messina [facility] Unavailable [phone] Aleshia Messina [facility] Unavailable Aleshia Messina [facility] Unavailable Aric Dumont MD Unavailable [phone] Encounter Details Date Type Department Care Team (Late st Contact Info) Description 10/20/2021 [facility] [address] [place] [address] Crys Amaya, RN Social History Tobacco Use Types Packs/Day [...] documented as of this encounter Care Teams Baby Formula Mixer Relationship Specialty [place] [address] [place] [address] PCP - General Family Practice 04/03/17 [place] [address] [place] [address] Assigned PCP 11/19/19 05/15/22 Anabell Wells Personal Advocate & Liaison (PAL) 08/07/20 Cedrick Lee MD [address] [place] [address] Assigned Heart and Vascular Provider 08/18/20 05/29/22 Namrata Little PA-C [address] [place] [address] Assigned Surgical Provider 09/15/20 Aleshia Messina [facility] [address] [place] [address] Pharmacist Pharmacist 03/17/21 Aleshia Messina [facility] 9 [place] [address] Assigned MTM Pharmacist 10/25/2102/13 Aleshia Messina [facility] [address] [place] [address] Assigned MTM Pharmacist 02/25/2209/18 [place] [address] [place] [address] Assigned PCP 07/25/22 documented as of this encounter
--- OUTSIDE RECORDS SUMMARY | 2023-07-02 11:29 | XMS_ITS | Encounter Summary ---
Author Name Unknown Organization [place] Address [facility] [place] [address] Care Team Providers Care Metal Window Screen Assembler Name Role Phone Aric Dumont MD Primary Care Provider Aric Dumont MD Unavailable [phone] Anabell Wells Unavailable Unavailable Cedrick Lee MD Unavailable [phone] Namrata Little PA-C Unavailable [phone] Aleshia Messina [facility] Unavailable Aleshia Messina [facility] Unavailable Aleshia Messina [facility] Unavailable [phone] Aric Dumont MD Unavailable [phone] Encounter Details Date Type Department Care Team (Late st Contact Info) Description 03/01/2021 [facility] [place] 168865 [facility] [address] [place] [phone] Namrata Little PA-C [address] [facility] [place], [place] [address] Social History Tobacco Use Types Packs/Day Years [...] Out COVID-19 05/04/2021 05/04/2021 05/05/2021 11:08 AM TOOL TENDER Rule Out COVID-19 12/21/2021 12/21/2021 12/21/2021 11:03 AM CDT COVID-19 12/21/2021 12/21/2021 01/11/2022 11:4 1 PM CDT documented as of this encounter Care Teams Metal Window Screen Assembler Relationship Specialty [place] [address] [place] [address] PCP - General Family Practice 04/03/17 [place] [address] [place] [address] Assigned PCP 11/19/19 05/15/22 Anabell Wells Personal Advocate & Liaison (PAL) 08/07/20 Cedrick Lee MD [address] [place] [address] Assigned Heart and Vascular Provider 08/18/20 05/29/22 Namrata Little PA-C [address] [place] [address] Assigned Surgical Provider 09/15/20 Aleshia Messina, [facility] [address] [place] [address] Pharmacist Pharmacist 03/17/21 Aleshia Messina, [facility] 9 [place] [address] Assigned MTM Pharmacist 10/25/2102/13 Aleshia Messina [facility] 9 [place] [address] Assigned MTM Pharmacist 02/25/2209/18 [place] [address] [place] [address] Assigned PCP 07/25/22 documented as of this encounter
--- OUTSIDE RECORDS SUMMARY | 2023-07-02 11:29 | XMS_ITS | Encounter Summary ---
Author Name Unknown Organization [place] Address [facility] [place] [address] Care Team Providers Care Pacs Specialist Name Role Phone Aric Dumont MD Primary Care Provider Aric Dumont MD Unavailable [phone] Anabell Wells Unavailable Unavailable Cedrick Lee MD Unavailable [phone] Namrata Little PA-C Unavailable [phone] Aleshia Messina [facility] Unavailable [phone] Aleshia Messina [facility] Unavailable Aleshia Messina [facility] Unavailable [phone] Aric Dumont MD Unavailable [phone] Reason for Visit * Reason Onset Date Comments Medication Refill Refill Request 11/05/2020 Encounter Details Date Type Department Care Team (Late st Contact Info) Description 11/03/2020 Refill [facility] [place] [address] [facility] [address] [place] [address] Namrata Little PA-C [address] [facility] [address] [place] [address] Medication Refill; Refill Request Social History Tobacco Use Types Packs/Day [...] encounter Miscellaneous Notes * Telephone Encounter - Crys Amaya RN - 11/05/2020 9:40 AM CDT Called pharmacy staff inquire as to why medication requires PA when pt has received this medicationin past. Pharmacy staff re-ran medication and it went through. Pt can now steel pickler for $25.00. pharmacy staff to let pt know when medication is ready. Crys Amaya RN on 11/05/2020 at 9:41 AM * Telephone Encounter - Crys Amaya RN - 11/04/2020 8:19 AM CDT Called pharmacy re: prescription refill request for victoza Per pharmacy staff pt has not picked it up yet, prior auth is needed. Will start prior auth. Crys Amaya RN on 11/04/2020 at 8:22 AM documented in this encounter Plan of Treatment [...] Out COVID-19 05/04/2021 05/04/2021 05/05/2021 11:08 AM SHAKE SPLITTER Rule Out COVID-19 12/21/2021 12/21/2021 12/21/2021 11:03 AM CDT COVID-19 12/21/2021 12/21/2021 01/11/2022 11:4 1 PM CDT documented as of this encounter Care Teams Pacs Specialist Relationship Specialty [place] [address] [place] [address] PCP - General Family Practice 04/03/17 [place] [address] [place] [address] Assigned PCP 11/19/19 05/15/22 Anabell Wells Personal Advocate & Liaison (PAL) 08/07/20 Cedrick Lee MD [address] [place] [address] Assigned Heart and Vascular Provider 08/18/20 05/29/22 Namrata Little PA-C [address] [place] [address] Assigned Surgical Provider 09/15/20 Aleshia Messina [facility] 9 [place] [address] Pharmacist Pharmacist 03/17/21 Aleshia Messina [facility] 9 [place] [address] Assigned MTM Pharmacist 10/25/2102/13 Aleshia Messina [facility] 9 [place] [address] Assigned MTM Pharmacist 02/25/2209/18 [place] [address] [place] [address] Assigned PCP 07/25/22 documented as of this encounter
--- OUTSIDE RECORDS SUMMARY | 2023-07-02 11:29 | XMS_ITS | Encounter Summary ---
Author Name Unknown Organization [place] Address [address] [place] [address] Care Team Providers Care Mechanical Ordnance Assembler Name Role Phone Aric uDmont MD Primary Care Provider Aric Dumont MD Unavailable [phone] Anabell Wells Unavailable Unavailable Cedrick Lee MD Unavailable [phone] Namrata Little PA-C Unavailable [phone] Aleshia Messina [facility] Unavailable Aleshia Messina [facility] Unavailable [phone] Aleshia Messina [facility] Unavailable Aric Dumont MD Unavailable [phone] Encounter Details Date Type Department Care Team (Late st Contact Info) Description 08/12/2021 [facility] [place] [facility] [address] [place] [address] Aleshia Messina, [facility] [address] [place] [address] Social History Tobacco Use Types [...] documented as of this encounter Care Teams Mechanical Ordnance Assembler Relationship Specialty [place] [address] [place] [address] PCP - General Family Practice 04/03/17 [place] [address] [place] [address] Assigned PCP 11/19/19 05/15/22 Anabell Wells Personal Advocate & Liaison (PAL) 08/07/20 Cedrick Lee MD [address] [place] [address] Assigned Heart and Vascular Provider 08/18/20 05/29/22 Namrata Little PA-C [address] [place] [address] Assigned Surgical Provider 09/15/20 Aleshia Messina [facility] [address] [place] [address] Pharmacist Pharmacist 03/17/21 Aleshia Messina [facility] [address] [place] [address] Assigned MTM Pharmacist 10/25/2102/13 Aleshia Messina [facility] [address] [place] [address] Assigned MTM Pharmacist 02/25/2209/18 [place] [address] [place] [address] Assigned PCP 07/25/22 documented as of this encounter
--- OUTSIDE RECORDS SUMMARY | 2023-07-02 11:29 | XMS_ITS | Encounter Summary ---
Author Name Unknown Organization [place] Address [address] [place] [address] Care Team Providers Care High Rigger Name Role Phone Aric Dumont MD Primary Care Provider [phone] Anabell Wells Unavailable Unavailable Cedrick Lee MD Unavailable + [phone] Namrata Little PA-C Unavailable [phone] Aleshia Messina [facility] Unavailable [phone] Aleshia Messina [facility] Unavailable [phone] Aric Dumont MD Unavailable [phone] Encounter Details Date Type Department Care Team (Late st Contact Info) Description 05/18/2022 [facility] [place] [facility] [address] [place] [address] Crys Amaya, RN Social History [...] documented as of this encounter Care Teams High Rigger Relationship Specialty [place] [address] [place] [address] PCP - General Family Practice 04/03/17 Anabell Wells Personal Advocate & Liaison (PAL) 08/07/20 Cedrick Lee MD [address] [facility] [place] [address] Assigned Heart and Vascular Provider 08/18/20 05/29/22 Namrata Little PA-C [address] [place] [address] Assigned Surgical Provider 09/15/20 Aleshia Messina [facility] [address] [place] [address] Pharmacist Pharmacist 03/17/21 Aleshia Messina [facility] [address] [place] [address] Assigned MTM Pharmacist 02/25/2209/18 [place] [address] [place] [address] Assigned PCP 07/25/22 documented as of this encounter
--- OUTSIDE RECORDS SUMMARY | 2023-07-02 11:29 | XMS_ITS | Encounter Summary ---
Author Name Unknown Organization [place] Address [address] [place] [address] Care Team Providers Care Supervisor Of Guidance And Testing Name Role Phone Aric Dumont MD Primary Care Provider Arci Dumont MD Unavailable [phone] Anabell Wells Unavailable Unavailable Cedrick Lee MD Unavailable [phone] Namrata Little PA-C Unavailable [phone] Aleshia Messina [facility] Unavailable Aleshia Messina [facility] Unavailable Aleshia Messina [facility] Unavailable Aric Dumont MD Unavailable [phone] Encounter Details Date Type Department Care Team (Late st Contact Info) Description 05/30/2021 [facility] [place] [facility] [address] [place] [address] Aleshia Messina, [facility] [address] [place] [address] Social History Tobacco Use Types [...] Exposure Response Date Recorded In the last month, have you been in contact with someone who was confirmed or suspected to have Coronavirus / COVID-19? Yes 05/04/2021 9:06 AM APPRAISAL ANALYST documented as of this encounter Plan of Treatment Not on file documented as of this encounter Visit Diagnoses Not on filedocumented in this encounter Additional Health Concerns Infection Onset Date Last Indicated Resolved Time ESBL 12/10/2010 08/12/2020 Rule Out COVID-19 12/21/2021 12/21/2021 12/21/2021 11:03 AM CDT COVID-19 12/21/2021 12/21/2021 01/11/2022 11:4 1 PM CDT documented as of this encounter Care Teams Supervisor Of Guidance And Testing Relationship Specialty [place] [address] [place] [address] PCP - General Family Practice 04/03/17 [place] [address] [place] [address] Assigned PCP 11/19/19 05/15/22 Anabell Wells Personal Advocate & Liaison (PAL) 08/07/20 Cedrick Lee MD [address] [place] [address] Assigned Heart and Vascular Provider 08/18/20 05/29/22 Namrata Little PA-C [address] [place] [address] Assigned Surgical Provider 09/15/20 Aleshia Messina [facility] [address] [place] [address] Pharmacist Pharmacist 03/17/21 Aleshia Messina [facility] 9 [place] [address] Assigned MTM Pharmacist 10/25/2102/13 Aleshia Messina [facility] 9 [place] [address] Assigned MTM Pharmacist 02/25/2209/18 [place] [address] [place], [place] [address] Assigned PCP 07/25/22 documented as of this encounter
--- OUTSIDE RECORDS SUMMARY | 2023-07-02 11:29 | XMS_ITS | Encounter Summary ---
Author Name Unknown Organization [place] Address [facility] [place] [address] Care Team Providers Care Horn Player Name Role Phone Aric Dumont MD Primary Care Provider Aric Dumont MD Unavailable [phone] Anabell Wells Unavailable Unavailable Cedrick Lee MD Unavailable [phone] Namrata Little PA-C Unavailable [phone] Aleshia Messina [facility] Unavailable Aleshia Messina [facility] Unavailable Aleshia Messina [facility] Unavailable [phone] Aric Dumont MD Unavailable [phone] Reason for Visit * Reason Comments Medication Refill Encounter Details Date Type Department Care Team (Late st Contact Info) Description [facility] [place] [address] [facility] [address] [place] [phone] Namrata Little PA-C [address] [facility] [address] [place] [id number] Medication Refill Social History Tobacco Use Types [...] Telephone Encounter - Cristina Guevara, RN - 09/24/2021 3:03 PM CDT Per BRANDON msg from patient. This was an auto pharmacy request. Not initiated by her or needed. Cristina Hurst, MS, RD, RN documented in [...] documented as of this encounter Care Teams Horn Player Relationship Specialty [place] [address] [place] [address] PCP - General Family Practice 04/03/17 [place] [address] [place] [address] Assigned PCP 11/19/19 05/15/22 Anabell Wells Personal Advocate & Liaison (PAL) 08/07/20 Cedrick Lee MD [address] [place] [address] Assigned Heart and Vascular Provider 08/18/20 05/29/22 Namrata Little PA-C [address] [place] [address] Assigned Surgical Provider 09/15/20 Aleshia Messina [facility] [address] [place] [address] Pharmacist Pharmacist 03/17/21 [facility] [address] [place] [address] Assigned MTM Pharmacist 10/25/2102/13 [facility] 9 [place] [address] Assigned MTM Pharmacist 02/25/2209/18 [place] [address] [place] [address] Assigned PCP 07/25/22 documented as of this encounter
--- OUTSIDE RECORDS SUMMARY | 2023-07-02 11:30 | XMS_ITS | Encounter Summary ---
Author Name Unknown Organization [place] Address [address] [place] [address] Care Team Providers Care Gun Stock Checker Name Role Phone Aric Dumont MD Primary Care Provider Aric Dumont MD Unavailable [phone] Anabell Wells Unavailable Unavailable Cedrick Lee MD Unavailable [phone] Namrata Little PA-C Unavailable [phone] Aleshia Messina [facility] Unavailable Aleshia Messina [facility] Unavailable Aleshia Messina [facility] Unavailable [phone] Aric Dumont MD Unavailable [phone] Encounter Details Date Type Department Care Team (Late st Contact Info) Description 09/09/2020 [facility] [place] [place] [facility] [address] [place] [address] Crys Amaya, RN Social History [...] or suspected to have Coronavirus / COVID-19? No / Unsure 09/11/2020 10:49 AM CDT documented as of this encounter Plan of Treatment Not on file documented as of this encounter Visit Diagnoses Not on filedocumented in this encounter Additional Health Concerns Infection Onset Date Last Indicated Resolved Time ESBL 12/10/2010 08/12/2020 Rule Out COVID-19 05/04/2021 05/04/2021 05/05/2021 11:08 AM SLUDGE CONTROL ATTENDANT Rule Out COVID-19 12/21/2021 12/21/2021 12/21/2021 11:03 AM CDT COVID-19 12/21/2021 12/21/2021 01/11/2022 11:4 1 PM CDT documented as of this encounter Care Teams Gun Stock Checker Relationship Specialty [place] [address] [place] [address] PCP - General Family Practice 04/03/17 [place] [address] [place] [address] Assigned PCP 11/19/19 05/15/22 Anabell Wells Personal Advocate & Liaison (PAL) 08/07/20 Cedrick Lee MD [address] [place] [address] Assigned Heart and Vascular Provider 08/18/20 05/29/22 Namrata Little PA-C [address] [place] [address] Assigned Surgical Provider 09/15/20 Aleshia Messina, [facility] [address] [place] [address] Pharmacist Pharmacist 03/17/21 Aleshia Messina, [facility] [address] [place] [address] Assigned MTM Pharmacist 10/25/2102/13 Aleshia Messina [facility] [address] [place] [address] Assigned MTM Pharmacist 02/25/2209/18 [place] [address] [place] [address] Assigned PCP 07/25/22 documented as of this encounter
--- OUTSIDE RECORDS SUMMARY | 2023-07-02 11:30 | XMS_ITS | Encounter Summary ---
Author Name Unknown Organization [place] Address [facility] [place] [address] Care Team Providers Care Flying Squad Salesperson Name Role Phone Aric Dumont MD Primary Care Provider Aric Dumont MD Unavailable [phone] Anabell Wells Unavailable Unavailable Cedrick Lee MD Unavailable [phone] Namrata Little PA-C Unavailable [phone] [facility] Unavailable [phone] [facility] Unavailable [phone] [facility] Unavailable Aric Dumont MD Unavailable [phone] Encounter Details Date Type Department Care Team (Late st Contact Info) Description 08/29/2020 [facility] [address] [place] [address] Cedrick Lee MD [address] [id number] Social History Tobacco Use Types Packs/Day Years [...] have Coronavirus / COVID-19? 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 SPECIALIST Rule Out COVID-19 12/21/2021 12/21/2021 12/21/2021 11:03 AM CDT COVID-19 12/21/2021 12/21/2021 01/11/2022 11:4 1 PM CDT documented as of this encounter Care Teams Flying Squad Salesperson Relationship Specialty [place] [address] [place] [address] PCP - General Family Practice 04/03/17 [place] [address] [place] [address] Assigned PCP 11/19/19 05/15/22 Anabell Wells Personal Advocate & Liaison (PAL) 08/07/20 Cedrick Lee MD [address] [place] [address] Assigned Heart and Vascular Provider 08/18/20 05/29/22 Namrata Little PA-C [address] [place] [address] Assigned Surgical Provider 09/15/[address] [facility] 9 [place] [address] Pharmacist Pharmacist 03/17/[address] [facility] [address] [place] [address] Assigned MTM Pharmacist 10/25/2102/[address] [facility] 9 [place] [address] Assigned MTM Pharmacist 02/25/2209/18 [place] [address] [place] [address] Assigned PCP 07/25/22 documented as of this encounter
--- OUTSIDE RECORDS SUMMARY | 2023-07-02 11:30 | XMS_ITS | Encounter Summary ---
Author Name Unknown Organization [place] Address [facility] [place] [address] Care Team Providers Care Register Repairer Name Role Phone Aric Dumont MD Primary Care Provider [phone] Aric Dumont MD Unavailable [phone] Anabell Wells Unavailable Unavailable Cedrick Lee MD Unavailable [phone] Namrata Little PA-C Unavailable [phone] Aleshia Messina [facility] Unavailable [phone] Aleshia Messina [facility] Unavailable Aleshia Messina [facility] Unavailable Aric Dumont MD Unavailable [phone] Encounter Details Date Type Department Care Team (Late st Contact Info) Description 08/09/2020 [facility] [address] [place] [address] [place] [address] [place] [address] Social History Tobacco Use Types Packs/Day Years [...] have Coronavirus / COVID-19? 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 08/12/2020 12:22 PM CDT ESBL 12/10/2010 08/12/2020 Rule Out COVID-19 05/04/2021 05/04/2021 05/05/2021 11:08 AM BLINDSTITCH LAPEL PADDER Rule Out COVID-19 12/21/2021 12/21/2021 12/21/2021 11:03 AM CDT COVID-19 12/21/2021 12/21/2021 01/11/2022 11:4 1 PM CDT documented as of this encounter Care Teams Register Repairer Relationship Specialty [place] [address] [place] [address] PCP - General Family Practice 04/03/17 [place] [address] [place] [address] Assigned PCP 11/19/19 05/15/22 Anabell Wells Personal Advocate & Liaison (PAL) 08/07/20 Cedrick Lee MD [address] [address] Assigned Heart and Vascular Provider 08/18/20 05/29/22 Namrata Little PA-C [address] [facility] [address] [place] [address] Assigned Surgical Provider 09/15/20 Aleshia Messina [facility] [address] [place] [address] Pharmacist Pharmacist 03/17/21 Aleshia Messina [facility] [address] [place] [address] Assigned MTM Pharmacist 10/25/2102/13 Aleshia Messina [facility] 9 [place], [place] [address] Assigned MTM Pharmacist 02/25/2209/18 [place] [address] [place] [address] Assigned PCP 07/25/22 documented as of this encounter
--- OUTSIDE RECORDS SUMMARY | 2023-07-02 11:30 | XMS_ITS | Encounter Summary ---
Author Name Unknown Organization [place] Address [facility] [place] [address] Care Team Providers Care Endodontist Name Role Phone Aric Dumont MD Primary Care Provider Aric Dumont MD Unavailable [phone] Anabell Wells Unavailable Unavailable Cedrick Lee MD Unavailable [phone] Namrata Little PA-C Unavailable [phone] Aleshia Messina [facility] Unavailable [phone] Aleshia Messina [facility] Unavailable [phone] Aleshia Messina [facility] Unavailable Aric Dumont MD Unavailable Encounter Details Date Type Department Care Team (Late st Contact Info) Description 08/14/2020 [facility] [address] [place] [address] Cedrick Lee MD [address] [address] Social History Tobacco Use Types Packs/Day Years [...] Out COVID-19 05/04/2021 05/04/2021 05/05/2021 11:08 AM 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 Rule Out COVID-19 12/21/2021 12/21/2021 12/21/2021 11:03 AM CDT COVID-19 12/21/2021 12/21/2021 01/11/2022 11:4 1 PM CDT documented as of this encounter Care Teams Endodontist Relationship Specialty [place] [address] [place] [address] PCP - General Family Practice 04/03/17 [place] [address] [place] [address] Assigned PCP 11/19/19 05/15/22 Anabell Wells Personal Advocate & Liaison (PAL) 08/07/20 Cedrick Lee MD [address] [place] [address] Assigned Heart and Vascular Provider 08/18/20 05/29/22 Namrata Little PA-C [address] [place] [address] Assigned Surgical Provider 09/15/20 Aleshia Messina [facility] 9 [place] [address] Pharmacist Pharmacist 03/17/21 Aleshia Messina [facility] [address] [place] [address] Assigned MTM Pharmacist 10/25/2102/13 Aleshia Messina [facility] 9 [place] [address] Assigned MTM Pharmacist 02/25/2209/18 [place] [address] [place] [address] Assigned PCP 07/25/22 documented as of this encounter
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
--- OUTSIDE RECORDS SUMMARY | 2023-07-02 11:30 | XMS_ITS | Encounter Summary ---
Author Name Unknown Organization [place] Address [facility] [place] [address] Care Team Providers Care Needle Board Repairer Name Role Phone Aric Dumont MD Primary Care Provider [phone] Aric Dumont MD Unavailable [phone] Anabell Wells Unavailable Unavailable Cedrick Lee MD Unavailable [phone] Namrata Little PA-C Unavailable [phone] Aleshia Messina [facility] Unavailable Aleshia Messina [facility] Unavailable Aleshia Messina [facility] Unavailable [phone] Aric Dumont MD Unavailable [phone] Encounter Details Date Type Department Care Team (Late st Contact Info) Description 09/09/2020 Documentation Only [facility] [place] [address] [place] [phone] Unknown, Provider Social History Tobacco Use Types Packs/Day Years [...] Out COVID-19 05/04/2021 05/04/2021 05/05/2021 11:08 AM CORRECTIONS CORPORAL Rule Out COVID-19 12/21/2021 12/21/2021 12/21/2021 11:03 AM CDT COVID-19 12/21/2021 12/21/2021 01/11/2022 11:4 1 PM CDT documented as of this encounter Care Teams Needle Board Repairer Relationship Specialty [place] [address] [place] [address] PCP - General Family Practice 04/03/17 [place] [address] [place] [address] Assigned PCP 11/19/19 05/15/22 Anabell Wells Personal Advocate & Liaison (PAL) 08/07/20 Cedrick Lee MD [address] [place] [address] Assigned Heart and Vascular Provider 08/18/20 05/29/22 aNmrata Little PA-C [address] [place] [address] Assigned Surgical Provider 09/15/20 Aleshia Messina, [facility] [address] [place] [address] Pharmacist Pharmacist 03/17/21 Aleshia Messina [facility] 9 [place] [address] Assigned MTM Pharmacist 10/25/2102/13 Aleshia Messina [facility] 9 [place] [address] Assigned MTM Pharmacist 02/25/2209/18 [place] [address] [place], [place] [address] Assigned PCP 07/25/22 documented as of this encounter
--- OUTSIDE RECORDS SUMMARY | 2023-07-02 11:30 | XMS_ITS | Encounter Summary ---
Author Name Unknown Organization [facility] [place] [address] Care Team Providers Care Finisher Denture Name Role Phone Aric Dumont MD Primary Care Provider Aric Dumont MD Unavailable [phone] Anabell Wells Unavailable Unavailable Cedrick Lee MD Unavailable [phone] Namrata Little PA-C Unavailable [phone] Aleshia Messina [facility] Unavailable Aleshia Messina [facility] Unavailable Aleshia Messina [facility] Unavailable Aric Dumont MD Unavailable [phone] Encounter Details Date Type Department Care Team (Late st Contact Info) Description 08/26/2020 [facility] Medical Advice [facility] [address] [place] [address] Alexa Downs Social History Tobacco Use Types Packs/Day Years [...] Out COVID-19 05/04/2021 05/04/2021 05/05/2021 11:08 AM [employer] Rule Out COVID-19 12/21/2021 12/21/2021 12/21/2021 11:03 AM CDT COVID-19 12/21/2021 12/21/2021 01/11/2022 11:4 1 PM CDT documented as of this encounter Care Teams Finisher Denture Relationship Specialty [place] [address] [place] [address] PCP - General Family Practice 04/03/17 [place] [address] [place] [address] Assigned PCP 11/19/19 05/15/22 Anabell Wells Personal Advocate & Liaison (PAL) 08/07/20 Cedrick Lee MD [address] [place] [id number] Assigned Heart and Vascular Provider 08/18/20 05/29/22 Namrata Little PA-C [address] [place] [id number] Assigned Surgical Provider 09/15/20 Aleshia Messina, [facility] [address] [place] [address] Pharmacist Pharmacist 03/17/21 Aleshia Messina, [facility] [address] [place] [address] Assigned MTM Pharmacist 10/25/2102/13 Aleshia Messina [facility] [address] [place] [address] Assigned MTM Pharmacist 02/25/2209/18 [place] [address] [place] [address] Assigned PCP 07/25/22 documented as of this encounter
== END 2023-07-02 11:27 | disposition home or self-care (01) ==
LOC: ED 11:25
PROVIDERS: Emergency Provider Family Medicine
DX: T14.8XXA Other injury of unspecified body region, initial encounter (principal); Y04.2XXA Assault by strike against or bumped into by another person, initial encounter
CPT/HCPCS: 99282; 99283